=== PATIENT | male | born 1950 | race Caucasian/White ===

== ENCOUNTER 2018-02-27 03:28 | Emergency (ER) | payer OTHER ==
[~2018-02-27] VITALS: Ht 170.2 cm; Wt 77.0 kg
[2018-02-27] MEDS ORDERED: MORPHINE SULFATE 4 MG/ML CPJ (NOT FOR IM USE) IV STA (04:35)
[2018-02-27] MEDS ORDERED: METOCLOPRAMIDE HCL 10MG/2ML VIAL IV STA (04:35)
[2018-02-27] MEDS ORDERED: FAMOTIDINE 20MG/2ML VIAL IV STA (04:35)
[2018-02-27 06:00] LABS: BASOPHILS % 0.6 % (0.0-2.0); EOSINOPHILS % 0.5 % (0.0-5.0); HEMATOCRIT. 46.5 % (42.0-52.0); HEMOGLOBIN. 15.3 g/dL (14.0-18.0); LYMPHOCYTES % 16.5 % (20.0-50.0); MEAN CORPUSCULAR HEMOGLOBIN 28.8 pg (28.0-32.0); MEAN CORPUSCULAR VOLUME 87.6 fL (80.0-94.0); MEAN PLATELET VOLUME 8.2 fl (7.4-10.4); MONOCYTES % 4.9 % (2.0-8.0); NEUTROPHILS % 77.5 % (40.0-76.0); PLATELET 261 x1000/uL (130-400); RED BLOOD CELL COUNT 5.31 mill/uL (4.7-6.1); RED CELL DISTRIBUTION WIDTH 13.5 % (11.6-14.6)
[2018-02-27 06:08] LABS: CHLORIDE 106 mEq/L (98-107)
[2018-02-27 06:10] LABS: CLARITY URINE CLEAR (CLEAR); COLOR URINE YELLOW (YELLOW); KETONES URINE NEGATIVE (NEGATIVE); LEUKOCYTE ESTERASE URINE NEGATIVE (NEGATIVE); NITRITE URINE NEGATIVE (NEGATIVE); OCCULT BLOOD URINE NEGATIVE (NEGATIVE); PH URINE 6.5 (4.5-8.0); PROTEIN URINE 1+ (NEGATIVE); SPECIFIC GRAVITY URINE 1.004 (1.005-1.030); UROBILINOGEN URINE 0.2 E.U./dL (0.2-1.0)
[2018-02-27 06:13] LABS: ETHANOL BLOOD 224 mg/dL
[2018-02-27 07:20] VITALS: BP 119/68
== END 2018-02-27 07:52 | disposition home or self-care (01) ==
LOC: ER 03:28
DX: R10.13 Epigastric pain (principal); F10.10 Alcohol abuse, uncomplicated; R11.2 Nausea with vomiting, unspecified; I10 Essential (primary) hypertension; Y90.7 Blood alcohol level of 200-239 mg/100 ml
CPT/HCPCS: 36415; 76705; 80053; 81003; 83690; 85025; 96374; 96375; 99284; G0482; J2270; J2765; J3490

== ENCOUNTER 2018-07-02 10:59 | Emergency (ER) | payer MEDICARE, OTHER ==
[~2018-07-02] VITALS: Ht 162.6 cm; Wt 76.0 kg
[2018-07-02 11:40] LABS: BASOPHILS % 0.5 % (0.0-2.0); EOSINOPHILS % 1.4 % (0.0-5.0); HEMATOCRIT. 41.7 % (42.0-52.0); HEMOGLOBIN. 13.7 g/dL (14.0-18.0); LYMPHOCYTES % 19.9 % (20.0-50.0); MEAN CORPUSCULAR HEMOGLOBIN 28.5 pg (28.0-32.0); MEAN CORPUSCULAR VOLUME 86.5 fL (80.0-94.0); MEAN PLATELET VOLUME 7.6 fl (7.4-10.4); MONOCYTES % 6.6 % (2.0-8.0); NEUTROPHILS % 71.6 % (40.0-76.0); PLATELET 221 x1000/uL (130-400); RED BLOOD CELL COUNT 4.82 mill/uL (4.7-6.1); RED CELL DISTRIBUTION WIDTH 14.6 % (11.6-14.6)
[2018-07-02 11:46] LABS: CHLORIDE 104 mEq/L (98-107)
[2018-07-02 11:48] LABS: INR 1.1; PARTIAL THROMBOPLASTIN TIME 28.9 sec (23.4-31.0); PROTHROMBIN TIME 10.9 sec (9.6-11.0)
[2018-07-02 17:51] LABS: CLARITY URINE CLEAR (CLEAR); COLOR URINE YELLOW (YELLOW); KETONES URINE NEGATIVE (NEGATIVE); LEUKOCYTE ESTERASE URINE NEGATIVE (NEGATIVE); NITRITE URINE NEGATIVE (NEGATIVE); OCCULT BLOOD URINE NEGATIVE (NEGATIVE); PROTEIN URINE NEGATIVE (NEGATIVE); SPECIFIC GRAVITY URINE 1.012 (1.005-1.030)
[2018-07-02 18:00] VITALS: BP 160/81
== END 2018-07-02 18:26 | disposition home or self-care (01) ==
LOC: ER 10:59
DX: S09.90XA Unspecified injury of head, initial encounter (principal); M54.2 Cervicalgia; I10 Essential (primary) hypertension; Z98.890 Other specified postprocedural states; W18.39XA Other fall on same level, initial encounter; Y93.89 Activity, other specified; Y92.89 Other specified places as the place of occurrence of the external cause; Y99.8 Other external cause status
CPT/HCPCS: 36415; 71045; 83880; 84484; 93005; 99284

== ENCOUNTER 2023-07-01 12:00 | Emergency (ER) | payer BC ==
[~2023-07-01] VITALS: Ht 167.6 cm; Wt 80.7 kg
[~2023-07-01 12:00] MED LIST: AMLO5TAB88 MT
[2023-07-01 12:29] VITALS: TEMP 98.3; O2SAT 97
[2023-07-01 13:58] LABS: BASOPHILS % 0.3 % (0.0-2.0); HEMATOCRIT. 39.8 % (42.0-52.0); HEMOGLOBIN. 13.4 g/dL (14.0-18.0); LYMPHOCYTES % 10.6 % (20.0-50.0); MEAN CORPUSCULAR HEMOGLOBIN 28.7 pg (28.0-32.0); MEAN CORPUSCULAR HGB CONC 33.6 g/dL (31.0-37.0); MEAN CORPUSCULAR VOLUME 85.4 fL (80.0-94.0); MEAN PLATELET VOLUME 7.5 fl (7.4-10.4); NEUTROPHILS % 82.1 % (40.0-76.0); PLATELET 264 x1000/uL (130-400); RED BLOOD CELL COUNT 4.67 mill/uL (4.7-6.1); RED CELL DISTRIBUTION WIDTH 14.7 % (11.6-14.6); WHITE BLOOD COUNT 13.5 x1000/uL (4.5-11.0)
[2023-07-01 14:03] LABS: CHLORIDE 97 mEq/L (98-107); POTASSIUM 3.2 mEq/L (3.5-5.1); SODIUM 135 mEq/L (136-145)
[2023-07-01 14:04] LABS: CARBON DIOXIDE 27 mEq/L (21-32)
[2023-07-01 14:05] LABS: CALCIUM 9.4 mg/dL (8.7-10.4)
[2023-07-01 14:09] LABS: CREATININE 0.9 mg/dL (0.6-1.3); GLUCOSE 143 mg/dL (70-105); PROTHROMBIN TIME 10.8 sec (9.6-11.0)
[2023-07-01 14:10] LABS: UREA NITROGEN BLOOD 12 mg/dL (9-23)
[2023-07-01 14:12] LABS: TROPONIN I HIGH SENSITIVITY 4 ng/L (3.0-53)
[2023-07-01 14:16] LABS: CLARITY URINE CLEAR (CLEAR); COLOR URINE DARK YELLOW (YELLOW); GLUCOSE URINE NEGATIVE (NEGATIVE); KETONES URINE TRACE (NEGATIVE); LEUKOCYTE ESTERASE URINE NEGATIVE (NEGATIVE); NITRITE URINE NEGATIVE (NEGATIVE); OCCULT BLOOD URINE NEGATIVE (NEGATIVE); PH URINE 6.5 (4.5-8.0); PROTEIN URINE 1+ (NEGATIVE); SPECIFIC GRAVITY URINE 1.018 (1.005-1.030)
[2023-07-01] MEDS ORDERED: IBUP-2029 MT (14:40)
[2023-07-01] MEDS ORDERED: METH-653 MT (14:40)
[2023-07-01 15:19] LABS: SQUAMOUS EPITHELIAL CELL URINE RARE /lpf (RARE/1+)
[2023-07-01 15:20] LABS: MUCUS URINE 2+ /lpf (NONE/TRACE); WBC URINE 0-2 /hpf (0-2)
[2023-07-01 15:21] LABS: BACTERIA URINE TRACE; HYALINE CASTS URINE 0-5 /lpf; RBC URINE NONE SEEN /hpf (0-2)
[2023-07-01] MEDS: METHOCARBAMOL 500MG TABLET PO ONE (15:37)
[2023-07-01] MEDS: KETOROLAC 30MG/ML VIAL IM ONE (15:37)
[2023-07-01] MEDS: HYDROCODONE/ACETAMINOPHEN 5/325MG TABLET PO ONE (15:37)
[2023-07-01 15:39] VITALS: BP 150/71; PULSE 78; RESP 20
== END 2023-07-01 15:39 | disposition home or self-care (01) ==
LOC: ER 13:48
DX: S09.8XXA Other specified injuries of head, initial encounter (principal); S33.5XXA Sprain of ligaments of lumbar spine, initial encounter; I10 Essential (primary) hypertension; M48.061 Spinal stenosis, lumbar region without neurogenic claudication; Z98.890 Other specified postprocedural states; W18.39XA Other fall on same level, initial encounter; Y93.89 Activity, other specified; Y92.89 Other specified places as the place of occurrence of the external cause; Y99.8 Other external cause status
CPT/HCPCS: 99285; 70450; 71045; 80048; 81003; 83880; 85025; 85610; 84484; 36415; 72131; 93005; 96372; J1885